=== PATIENT | male | born 1990 | race Two or more races ===

== ENCOUNTER 2017-11-17 23:10 | Emergency (ER) | payer OTHER ==
[2017-11-17 23:14] VITALS: RESP 16
[2017-11-17] MEDS ORDERED: methylPREDNISolone SOD SUCCI 125 MG/2 ML VIAL IV STA (23:28)
[2017-11-17] MEDS ORDERED: FAMOTIDINE 20 MG/2 ML VIAL IV STA (23:28)
[2017-11-18] MEDS ORDERED: diphenhydrAMINE 50 MG/ML 1 ML VIAL IVP STA (00:44)
--- NOTE | 2017-11-18 02:37 | ED ---
Skin/Abscess/FB HPI - General Source: patient Mode of arrival: ambulatory Limitations: no limitations <Rebeca Alan - Last Filed: 11/18/17 04:59> <Vicky Sigala - Last Filed: 11/20/17 01:12> - General Chief complaint: Skin/Abscess/Foreign Body Stated complaint: Hives Time Seen by Provider: 11/17/17 23:24 - History of Present Illness Initial comments: 27-year-old male patient presents to the emergency department today for evaluation of generalized itchy rash. Patient states it started earlier today. States he did attempt to take Benadryl for this approximately 5 hours prior to arrival however didn't seem to help. Patient states he did start a new antibiotic medication doxycycline and a facial wash for acne about a week ago. States that this is the first time he has taken either medication. Patient states he is having some lip swelling but denies any tongue swelling or throat swelling. He denies any wheezing or shortness of breath. Patient denies any known ALLERGIES. Denies any other new exposure to foods, lotions, creams, or detergents. Patient denies any recent fever, chills, chest pain, abdominal pain , nausea, vomiting, diarrhea, constipation, back pain, numbness, tingling, dizziness, weakness, hematuria, dysuria, urinary urgency, urinary frequency, headache, visual changes, or any other complaints. (Rebeca Alan) - Related Data Previous Rx's Medication Instructions Recorded Famotidine [Pepcid] 20 mg PO DAILY #3 tablet 11/18/17 predniSONE 50 mg PO DAILY #3 tablet 11/18/17 Allergies Allergy/AdvReac Type Severity Reaction Status Date / Time No Known Allergies Allergy Verified 11/17/17 23:14 Review of Systems ROS Other: All systems not noted in ROS Statement are negative. <Rebeca Alan - Last Filed: 11/18/17 04:59> ROS Other: All systems not noted in ROS Statement are negative. <Vicky Sigala - Last Filed: 11/20/17 01:12> ROS Statement: Those systems with pertinent positive or pertinent negative responses have been documented in the HPI. Past Medical History Past Medical History: No Reported History History of Any Multi-Drug Resistant Organisms: None Reported Past Surgical History: No Surgical Hx Reported Past Psychological History: No Psychological Hx Reported Smoking Status: Never smoker Past Alcohol Use History: Occasional Past Drug Use History: None Reported <Rebeca Alan M - Last Filed: 11/18/17 04:59> General Exam Limitations: no limitations General appearance: alert, in no apparent distress, other (This is a well- developed, well-nourished adult male patient in no acute distress. Vital signs upon presentation are temperature 98.7F, pulse 91, respirations 16, blood pressure 129/72, pulse ox 98% on room air.) Eye exam: Present: normal appearance, PERRL, EOMI. Absent: scleral icterus, conjunctival injection, periorbital swelling ENT exam: Present: normal exam, normal oropharynx, mucous membranes moist, other (Patient has upper lip swelling) Respiratory exam: Present: normal lung sounds bilaterally. Absent: respiratory distress, wheezes, rales, rhonchi, stridor Cardiovascular Exam: Present: regular rate, normal rhythm, normal heart sounds. Absent: systolic murmur, diastolic murmur, rubs, gallop, clicks GI/Abdominal exam: Present: soft, normal bowel sounds. Absent: distended, tenderness, guarding, rebound, rigid Neurological exam: Present: alert, oriented X3, CN II-XII intact Psychiatric exam: Present: normal affect, normal mood Skin exam: Present: warm, dry, intact, normal color, rash, urticaria ( Generalized) <Rebeca Alan M - Last Filed: 11/18/17 04:59> Vital Signs 11/17/17 11/18/17 11/18/17 23:11 00:10 00:57 Temperature 98.7 F Pulse Rate 91 84 Respiratory 16 16 16 Rate Blood Pressure 129/72 103/52 O2 Sat by Pulse 98 99 Oximetry 11/18/17 11/18/17 00:58 02:41 Temperature 98.9 F 99.3 F Pulse Rate 80 Respiratory 16 Rate Blood Pressure 110/53 O2 Sat by Pulse 98 Oximetry Medical Decision Making <Rebeca Alan M - Last Filed: 11/18/17 04:59> <Vicky Sigala - Last Filed: 11/20/17 01:12> - Medical Decision Making 27-year-old male patient presented to the emergency department today for evaluation of an urticarial type rash. Patient did start taking doxycycline and a new facial wash for his acne about one week ago. Physical examination did reveal urticaria over the patient's body worse over his volar wrists and neck. Patient is also having some upper lip swelling. There is no evidence of tongue swelling. Patient is swallowing without difficulty and denies any throat discomfort. Denies any shortness of breath or wheezing. Patient was given Solu-Medrol and Pepcid here in the emergency department. He was given 25 mg of Benadryl IV as he did take a dose about 5 hours prior to arrival. Patient is feeling better upon reevaluation. He'll be discharged home with a prescription of prednisone and Pepcid. He is instructed to continue taking Benadryl every 6 hours as needed. He is instructed to stop taking the new medications and to follow-up with his doctor as soon as possible. Return parameters were discussed in detail. He verbalizes understanding and agrees with this plan. (Rebeca Alan) I was available for consultation in the emergency department. The history and physical exam were done by the midlevel provider. I was consulted for this patient's care. I reviewed the case with the midlevel provider and based on their presentation of the patient, I agree with the assessment, medical decision making and plan of care as documented. (Vicky Sigala) Disposition Is patient prescribed a controlled substance at d/c from ED?: No Time of Disposition: 02:37 <Rebeca Alan - Last Filed: 11/18/17 04:59> <Vicky Sigala - Last Filed: 11/20/17 01:12> Clinical Impression: Urticaria, Allergic reaction Disposition: HOME SELF-CARE Condition: Good Instructions: Urticaria (ED), General Allergic Reaction (ED) Additional Instructions: Stopped taking new medications and follow-up with your doctor for further instructions. Complete all new prescriptions as directed. Return to the emergency department for any new, worsening, or concerning symptoms. Prescriptions: Famotidine [Pepcid] 20 mg PO DAILY #3 tablet predniSONE 50 mg PO DAILY #3 tablet Referrals: None,Stated [Primary Care Provider] - 1-2 days
[2017-11-18 02:41] VITALS: BP 110/53; PULSE 80; TEMP 99.3
== END 2017-11-18 02:43 | disposition home or self-care (01) ==
LOC: EC 23:10
DX: L50.0 Allergic urticaria (principal)
CPT/HCPCS: 99282; 96374; 96375 ×2; J1200; J2930